=== PATIENT | female | born 1990 | race Caucasian/White ===

== ENCOUNTER 2019-03-14 09:52 | Outpatient (CLI) | payer OTHER ==
[~2019-03-14] VITALS: Ht 152.4 cm; Wt 73.7 kg
[~2019-03-14 09:52] MED LIST: LABE100T7 PO; PNV11TAB PO
[2019-03-14 11:55] VITALS: Ht 152.4 cm; Wt 73.7 kg
[2019-03-14 11:56] VITALS: BP 137/85; PULSE 83; RESP 19
== END 2019-03-14 13:01 | disposition home or self-care (01) ==
LOC: OBT 09:52 → L-D 09:54 → OBT 13:01
PROVIDERS: ATTEND Specialist
DX: O13.3 Gestational [pregnancy-induced] hypertension without significant proteinuria, third trimester (principal); O34.219 Maternal care for unspecified type scar from previous cesarean delivery; Z3A.32 32 weeks gestation of pregnancy
CPT/HCPCS: 76815; 76818; 80053; 81003; 82570; 84560; 85025; 85384; 85610; 85730; Z7500; G0463

== ENCOUNTER 2019-04-15 12:36 | Outpatient (CLI) | payer OTHER ==
[~2019-04-15] VITALS: Ht 149.9 cm; Wt 75.7 kg
[2019-04-15 12:42] VITALS: Ht 149.9 cm; Wt 75.7 kg
[2019-04-15 12:43] VITALS: BP 136/82
[2019-04-15] MEDS ORDERED: LABETALOL 100 MG TAB PO ONE (13:00)
[2019-04-15] MEDS ORDERED: ACETAMINOPHEN 500 MG TAB PO STA (14:26)
== END 2019-04-15 15:55 | disposition home or self-care (01) ==
LOC: OBT 12:36 → L-D 12:38 → OBT 15:55
PROVIDERS: ATTEND Specialist
DX: O16.3 Unspecified maternal hypertension, third trimester (principal); O34.219 Maternal care for unspecified type scar from previous cesarean delivery; Z3A.36 36 weeks gestation of pregnancy
CPT/HCPCS: 76818; 80053; 81001; 81003; 84560; 85025; Z7500; Z7610; G0463